=== PATIENT | male | born 1945 | race Caucasian/White ===

== ENCOUNTER → 2019-07-11 | Outpatient (CLI) | payer MEDICARE ==
[~2019-07-11] MED LIST: ADV500INH INH; ALBU83IN INH; ASPI81TA85 PO; BENT10CA PO; CRANCAP9 PO; FLUT50SP12; IPRA0.00 INH; MOME50SP; MULTCAP PO; PROTPAK PO; SYNT150T PO; VITA-137 PO
--- NOTE | 2019-07-11 09:06 | REP ---
Right upper quadrant sonography: History: Gastroparesis, nausea, epigastric pain. Comparison study: Comparison MRI study April 21, 2015. Findings: Scanning through the right upper quadrant of the abdomen demonstrates a normal sized, thin-walled gallbladder without evidence of stone or polyp. Common bile duct is normal measuring 0.4 cm in greatest diameter. No focal liver lesion is seen. Liver size is normal. No pancreatic abnormality is observed. There are several cysts in the right kidney. These include an upper pole cyst measuring 1.7 cm, mid pole cyst measuring 2.4 cm, and a larger lower pole cyst measuring 4.5 x 4.3 x 4.6 cm. These were noted previously. There is no evidence of ascites. The right kidney measures 11.3 x 5.9 x 4.9 cm. Impression: Multiple cysts right kidney, otherwise negative right upper quadrant sonography. Electronically Signed by Erasto Caldera MD 07/11/2019 08:57 A
--- NOTE | 2019-07-11 10:38 | REP ---
NUCLEAR GASTRIC EMPTYING SCAN: Following the oral administration of 1.09 mCi technetium 99m sulfur colloid in two scrambled eggs and 4 ounces of water, multiple images of the upper abdomen are performed in the anterior and posterior projections for 90 minutes. Esophageal uptake is noted. This may indicate gastroesophageal reflux. At the end of 90 minutes, 80% of the ingested activity has emptied from the stomach. T1/2 is calculated to be 64 minutes, which is normal. IMPRESSION: Normal gastric emptying. Esophageal activity suggests possible gastroesophageal reflux. Electronically Signed by Suresh Lambert MD 07/11/2019 07:43 P
== END ==
LOC: M RAD 07:20
PROVIDERS: ATTEND Internal Medicine Gastroenterology
DX: K31.84 Gastroparesis (principal); R10.9 Unspecified abdominal pain
CPT/HCPCS: 76705; 78264; A9541